=== PATIENT | male | born 1980 | race African-American/Black ===

== ENCOUNTER 2017-03-12 13:45 | Emergency (ER) | payer OTHER ==
[~2017-03-12] VITALS: Ht 165.1 cm; Wt 88.0 kg
[2017-03-12 14:14] VITALS: BP 149/86
== END 2017-03-12 14:48 | disposition left against medical advice (07) ==
LOC: ER 13:45
DX: J45.909 Unspecified asthma, uncomplicated (principal); F17.200 Nicotine dependence, unspecified, uncomplicated; Z53.21 Procedure and treatment not carried out due to patient leaving prior to being seen by health care provider

== ENCOUNTER 2017-05-04 13:41 | Emergency (ER) | payer OTHER | END 2017-05-04 15:04 | disposition home or self-care (01) | LOC: ER 13:41 | DX: R51 Headache (principal); M54.2 Cervicalgia; J32.9 Chronic sinusitis, unspecified; J45.909 Unspecified asthma, uncomplicated | CPT/HCPCS: 99283 ==

== ENCOUNTER 2017-08-11 12:13 | Emergency (ER) | payer OTHER | END 2017-08-11 13:20 | disposition home or self-care (01) | LOC: ER 12:13 | DX: K02.9 Dental caries, unspecified (principal); J45.909 Unspecified asthma, uncomplicated | CPT/HCPCS: 99283 ==

== ENCOUNTER 2017-08-13 17:42 | Emergency (ER) | payer OTHER ==
[2017-08-13] MEDS: HYDROcodone/APAP 5/325MG 1 TAB TABLET PO (18:42)
== END 2017-08-13 18:45 | disposition home or self-care (01) ==
LOC: ER 17:42
DX: K02.9 Dental caries, unspecified (principal); K08.89 Other specified disorders of teeth and supporting structures; Z88.0 Allergy status to penicillin
CPT/HCPCS: 99283